=== PATIENT | female | born 1960 | race Caucasian/White ===

== ENCOUNTER 2021-08-31 10:21 | Emergency (ER) | payer BC, SELFPAY ==
[2021-08-31] VITALS (7 sets, daily range): BP systolic 119–142; BP diastolic 84–109; PULSE 74–129; RESP 16–18; TEMP 36.1; O2SAT 96–99
--- NOTE | 2021-08-31 11:24 | ED.NURSE ---
1117--started #20 jelco as a saline lock in the RAC and able to draw the labs. running a ED POC Trop with results pending. EKG done. patient remains pain free. placed on bus driver/monitor, pulse ox, and bp monitor.
--- NOTE | 2021-08-31 11:38 | CRLHL7_ITS ---
For Patients: As a result of the Cures Act, medical imaging exams and procedure reports are released immediately into your electronic medical record. You may view this report before your referring provider. If you have questions, please contact your health care provider. INDICATION: Abnormal cardiac rhythm COMPARISON: None TECHNIQUE: Single-view study FINDINGS: TUBES AND LINES: None. HEART AND MEDIASTINUM: The heart size is normal. The mediastinal contour appears normal for patient age. LUNGS AND PLEURAL SPACES: The lungs appear normal.The pleural spaces are unremarkable. OSSEOUS STRUCTURES: Age-appropriate appearance. No acute focal finding.Marginal visualization of a left shoulder arthroplasty. IMPRESSION: No evidence of active pulmonary disease. Dictated by Jayant Justin MD @ 08/31/2021 12:27:48 PM (Electronically Signed)
[2021-08-31 12:07] LABS: Basophils Absolute Auto 0.01 K/uL (0.00-0.30); Basophils Percent Auto 0.1 % (0.0-3.0); Eosinophils Absolute Auto 0.02 K/uL (0.00-0.50); Eosinophils Percent Auto 0.3 % (0.0-7.0); Hematocrit 45.4 % (33.0-51.0); Immature Granulocytes Abs Auto 0.05 K/uL (0.00-0.30); Lymphocytes Percent Auto 14.9 % (20-44); Mean Corpuscular HGB Conc 33 gm/dL (32-36); Mean Corpuscular Hemoglobin 31 pg (26-34); Mean Corpuscular Volume 94 fL (80-100); Monocytes Percent Auto 6.7 % (0.0-11.0); Neutrophils Percent Auto 77.3 % (42.0-72.0); Platelet Count* 343 K/uL (140-440); RDW Coefficient of Variation % 12.8 % (11.5-15.5); Red Blood Count 4.82 m/uL (4.00-5.20); White Blood Count* 6.97 K/uL (4.50-11.00)
[2021-08-31] MEDS: ASPIRIN 81 MG TAB.CHEW 324 MG PO (12:07)
[2021-08-31] MEDS: dilTIAZem 5 MG/ML inj 10 MG IVP (12:08)
[2021-08-31] MEDS: 0.9 % SODIUM CHLORIDE 1000 ml 1,000 ML IV (12:09)
[2021-08-31 12:10] LABS: Slide Review Reflex No
[2021-08-31 12:19] LABS: Albumin* 4.4 g/dL (3.3-5.0); Chloride* 104 mmol/L (96-114); Sodium* 137 mmol/L (135-149)
[2021-08-31 12:20] LABS: Potassium* 4.3 mmol/L (3.6-5.1)
[2021-08-31 12:22] LABS: Aspartate Amino Transferase* 25 U/L (12-35); Bilirubin Total* 0.4 mg/dL (0.1-1.5); Carbon Dioxide* 24 mmol/L (20-32); Creatinine* 0.7 mg/dL (0.5-1.5); Est. Creatinine Clearance* 51.81; Estimated Glomerular Filt Rate 97 ml/min
[2021-08-31 12:23] LABS: Alanine Aminotransferase* 17 U/L (4-35); Alkaline Phosphatase* 112 U/L (40-150); Blood Urea Nitrogen* 12 mg/dL (7-30); Glucose* 114 mg/dL (60-115); Total Protein* 8.1 g/dL (6.0-8.3)
[2021-08-31 12:31] LABS: NT Pro B Type NatriureticPept* 664 PG/mL (0-125)
[2021-08-31 12:41] LABS: Troponin I* < 0.01 ng/mL (0.01-0.04)
--- NOTE | 2021-08-31 12:47 | ED.ARRPALP ---
HPI - Arrhythmia/Palpitations General Time Seen by Provider: 11:00 Date Seen: 08/31/21 Chief Complaint: Arrhythmia/Palpitations Stated Complaint: Issues with afib, raised heartrate Time Seen by Provider: 08/31/21 11:17 Source: patient, family, RN notes reviewed and old records reviewed Mode of arrival: ambulatory Limitations: no limitations History of Present Illness HPI narrative: Awa is a very pleasant 61-year-old female with a history of atrial fibrillation status post ablation 5 years ago who comes to the emergency room with complaints of irregular heartbeat intermittently over the past month. Patient notes the onset of occasional episodes of irregular heartbeat a month ago. At times this would last for hours. Today's irregular heart rate which is elevated and bothersome for her has been lasting since yesterday. Patient is not currently on aspirin or any blood thinners. She denies chest pain or shortness of breath. She is tired because she states she cannot sleep when she has this going on. She has not noticed any lower extremity edema, shortness of breath, cough cold runny nose. She has not had any problems with irregular heartbeat since her ablation 5 years ago. In June of this year patient fell and sustained a concussion. She did not lose consciousness and did not require a CT. She had ongoing vertigo which was treated with physical therapy. Has not had any problems since that time. She has had complete resolution of all her symptoms. Patient notes moderate intake of caffeine. She has not any stimulant medication. MD complaint: rapid heart beat Related Data Home Medications Medication Instructions Recorded Confirmed cetirizine 08/31/21 fluticasone propionate 50 INTRANASAL 08/31/21 mcg/actuation nasal spray,suspension ben-kub-qsdcz-cholin-bioflavon 08/31/21 replanex 08/31/21 sertraline 50 mg tablet mg 08/31/21 Previous Rx's Medication Instructions Recorded apixaban 5 mg tablet (Eliquis) 5 mg PO BID #60 tab 08/31/21 diltiazem HCl 120 mg 120 mg PO DAILY #30 cap 08/31/21 capsule,extended release 24 hr (Cardizem CD) Allergies Allergy/AdvReac Type Severity Reaction Status Date / Time omeprazole [From Prilosec] Allergy Mild jitters Verified 08/31/21 10:58 Review of Systems Status of ROS: Reports: 10 or more systems reviewed and unremarkable except as noted in History and below Const: Reports: fatigue (From lack of sleep); Denies: fever or chills Eyes: Denies: change in vision or blurry vision ENMT: Denies: throat pain, neck pain or difficulty swallowing Cardio: Denies: shortness of breath with exertion Resp: Denies: shortness of breath or wheezing GI: Denies: abdominal pain, nausea, vomiting, diarrhea or difficulty swallowing : Denies: painful urination or urinary frequency Musculo: Denies: back pain or neck pain Integ/Breast: Denies: rash Neuro: Denies: headache, numbness in extremities or weakness in extremities Psych: Denies: anxiety Endo: Reports: fatigue (From lack of sleep) Allergy/Immuno: Denies: wheezing PFSH PFSH Surgical History (Updated 08/31/21 @ 14:18 by Rosmery Lima RN) S/P ablation of atrial fibrillation Social History Smoking Status: Former smoker Do you use any of these nicotine containing products: None How often do you have a drink containing alcohol: 2-3 times a week How often do you have six or more drinks on one occasion: Weekly AUDIT-C Alcohol total score: 6 Non-prescribed substance use: denies use service: No Exam Const: Vital Signs, click to edit/add: Vital Signs - 24 hr 08/31/21 10:52 08/31/21 11:10 08/31/21 11:30 Temperature 97.0 F L Pulse Rate [Right Pulse Oximeter] 75 129 H 103 H Respiratory Rate 18 18 18 Blood Pressure [Ri ght Upper Arm] 123/84 136/89 132/109 H Pulse Oximetry 99 99 96 08/31/21 12:00 08/31/21 13:00 08/31/21 13:30 Temperature Pulse Rate [Right Pulse Oximeter] 108 H 77 77 Respiratory Rate 16 16 16 Blood Pressure [Ri ght Upper Arm] 126/97 H 136/87 142/87 H Pulse Oximetry 98 96 97 08/31/21 14:00 Temperature Pulse Rate [Right Pulse Oximeter] 74 Respiratory Rate 16 Blood Pressure [Ri ght Upper Arm] 119/93 H Pulse Oximetry 96 Documenting provider has reviewed patient's vital signs: yes Common normals: no apparent distress, oriented x3 and healthy appearing General appearance: cooperative, comfortable and well kempt HENMT: Common normals: normocephalic Head and scalp: normal to inspection and normocephalic Face and sinus: normal facial exam Eye: Common normals: PERRL General eye: normal appearance of both eyes Pupil: PERRL Neck & C-Spine: Common normals: supple and no JVD; negative for full ROM Resp: Common normals: normal respiratory effort and clear to auscultation bilaterally Effort & inspection: able to speak in complete sentences and symmetric chest movement Auscultation: clear to auscultation bilaterally Cardio: Common normals: no JVD Rate: tachycardic Rhythm: abnormal rhythm irregularly irregular GI: Common normals: Normal to inspection, nondistended, normoactive bowel sounds present, soft to palpation and non-tender Palpation: soft Extremity: Common normals: normal to inspection and no pedal edema Neuro: Common normals: oriented x3 Psych: Common normals: mental status grossly normal Appearance: well kempt Skin: Common normals: no rashes or lesions noted General skin exam: no rashes or lesions noted Course Course Hospital Course: Patient is presenting in atrial fibrillation intermittent for 1 month. She is not currently on any blood thinners. We will check for underlying acute coronary event but I think this is turned into a subacute situation. Patient will be given aspirin 324 mg p.o.. Will be use Cardizem 10 mg IV to slow heart rate down and then give p.o. Cardizem for continued rate control. I suspect that patient will continue in her atrial fibrillation. Will start her on Eliquis. Will check cardiac enzymes and EKGs x2. Will also check a love other electrolytes including magnesium, CBC, liver function tests. Reevaluation(s) Reevaluation #1: Patient noted to be feeling better now with a heart rate in her 80s. Currently awaiting remainder of labs but thus far laboratory values within normal limits. Vital Signs Vital signs: Initial Vital Signs Temperature 97.0 F L 08/31/21 10:52 Temperature Source Temporal Artery Scan 08/31/21 10:52 Pulse Rate 75 08/31/21 10:52 Pulse Rhythm 08/31/21 10:52 Respiratory Rate 18 08/31/21 10:52 Blood Pressure 123/84 08/31/21 10:52 Blood Pressure Mean 97 08/31/21 10:52 Blood Pressure Position Sitting 08/31/21 10:52 Pulse Oximetry 99 08/31/21 10:52 Oxygen Delivery Method 08/31/21 10:52 Vital Signs Temperature 97.0 F L 08/31/21 10:52 Pulse Rate 75 08/31/21 10:52 Respiratory Rate 18 08/31/21 10:52 Blood Pressure 123/84 08/31/21 10:52 Pulse Oximetry 99 08/31/21 10:52 Temperature 97.0 F L 08/31/21 10:52 Pulse Rate 74 08/31/21 14:00 Respiratory Rate 16 08/31/21 14:00 Blood Pressure 119/93 H 08/31/21 14:00 Pulse Oximetry 96 08/31/21 14:00 MDM - Arrhythmia/Palpitations MDM Narrative Medical decision making narrative: 1. Atrial fibrillation with RVR-patient has history of AFib with ablation 5 years ago. She has now had intermittent irregular heartbeat for the past month. She has not been on any blood thinners. Patient was given aspirin upon her arrival as well as IV fluids, Cardizem 10 mg IV. She has had 2- troponins and her EKGs are reassuring. Heart rate now in the 70s to 80s. She was given oral Cardizem CD 120 mg. She will be discharged home. She will need to follow up with her primary MD if her heart rate is above 100 for increased dose of Cardizem. I would ask that she also started on Eliquis 5 mg p.o. b.i.d. I did attempt to put in Xarelto but was notified by computer that this was not on her formulary list. She had taken Xarelto successfully for 5 years ago. No evidence [facility] today. Follow-up with primary MD and machine stacker. She may be a candidate for cardioversion versus ablation. Return to the emergency room for worsening symptoms. 2. Disposition-patient is discharged home. She is to return as needed for worsening symptoms. Medical Records Attestation: I reviewed the patient's medical records. Lab Data Attestation: I reviewed the patient's lab results. Labs: Lab Results 08/31/21 08/31/21 08/31/21 Range/Units 11:17 11:17 11:17 WBC 6.97 (4.50-11.00) K/uL RBC 4.82 (4.00-5.20) m/uL Hgb 15.0 (12.0-16.0) gm/dL Hct 45.4 (33.0-51.0) % MCV 94 (80-100) fL MCH 31 (26-34) pg MCHC 33 (32-36) gm/dL RDW Coeff of Rosa 12.8 (11.5-15.5) % Plt Count 343 (140-440) K/uL Neut % (Auto) 77.3 H (42.0-72.0) % Lymph % (Auto) 14.9 L (20-44) % Mcintosh % (Auto) 6.7 (0.0-11.0) % Eos % (Auto) 0.3 (0.0-7.0) % Baso % (Auto) 0.1 (0.0-3.0) % Neut # (Auto) 5.40 (1.7-7.0) K/uL Lymph # (Auto) 1.00 (0.90-2.90) K/uL Mcintosh # (Auto) 0.50 (0.00-0.90) K/UL Eos # (Auto) 0.02 (0.00-0.50) K/uL Baso # (Auto) 0.01 (0.00-0.30) K/uL Abs Immat Gran (auto) 0.05 (0.00-0.30) K/uL Sodium 137 (135-149) mmol/L Potassium 4.3 (3.6-5.1) mmol/L Chloride 104 (96-114) mmol/L Carbon Dioxide 24 (20-32) mmol/L BUN 12 (7-30) mg/dL Creatinine 0.7 (0.5-1.5) mg/dL Estimated Creat Clear 51.81 Estimated GFR 97 ml/min Glucose 114 (60-115) mg/dL Calcium 9.0 (8.4-10.6) mg/dL Magnesium 2.0 (1.5-2.6) mg/dL Total Bilirubin 0.4 (0.1-1.5) mg/dL AST 25 (12-35) U/L ALT 17 (4-35) U/L Alkaline Phosphatase 112 (40-150) U/L Troponin I < 0.01 L (0.01-0.04) ng/mL NT-Pro-B Natriuret Pep 664 H (0-125) PG/mL Total Protein 8.1 (6.0-8.3) g/dL Albumin 4.4 (3.3-5.0) g/dL POC Troponin I 0.00 L (0.01-0.04) ng/ml 08/31/21 Range/Units 13:19 WBC (4.50-11.00) K/uL RBC (4.00-5.20) m/uL Hgb (12.0-16.0) gm/dL Hct (33.0-51.0) % MCV (80-100) fL MCH (26-34) pg MCHC (32-36) gm/dL RDW Coeff of Rosa (11.5-15.5) % Plt Count (140-440) K/uL Neut % (Auto) (42.0-72.0) % Lymph % (Auto) (20-44) % Mcintosh % (Auto) (0.0-11.0) % Eos % (Auto) (0.0-7.0) % Baso % (Auto) (0.0-3.0) % Neut # (Auto) (1.7-7.0) K/uL Lymph # (Auto) (0.90-2.90) K/uL Mcintosh # (Auto) (0.00-0.90) K/UL Eos # (Auto) (0.00-0.50) K/uL Baso # (Auto) (0.00-0.30) K/uL Abs Immat Gran (auto) (0.00-0.30) K/uL Sodium (135-149) mmol/L Potassium (3.6-5.1) mmol/L Chloride (96-114) mmol/L Carbon Dioxide (20-32) mmol/L BUN (7-30) mg/dL Creatinine (0.5-1.5) mg/dL Estimated Creat Clear Estimated GFR ml/min Glucose (60-115) mg/dL Calcium (8.4-10.6) mg/dL Magnesium (1.5-2.6) mg/dL Total Bilirubin (0.1-1.5) mg/dL AST (12-35) U/L ALT (4-35) U/L Alkaline Phosphatase (40-150) U/L Troponin I (0.01-0.04) ng/mL NT-Pro-B Natriuret Pep (0-125) PG/mL Total Protein (6.0-8.3) g/dL Albumin (3.3-5.0) g/dL POC Troponin I 0.00 L (0.01-0.04) ng/ml Imaging Data Chest: My impression: No acute findings Radiologist's impression: No acute findings ECG Data ECG interpretation date: 08/31/21 Interpretation: EKG 1. Shows atrial fibrillation with RVR at a rate of 112. Nonspecific ST T wave abnormality with very subtle depression in aVL and AVF. EKG 2. Shows atrial fibrillation at a rate of 85. No acute ST or T-wave changes. Discharge Plan Discharge Clinical Impression: Atrial fibrillation Patient Disposition: Home, Self-Care Condition: Improved Instructions: A-fib (Atrial Fibrillation) (ED), Blood Thinners (ED) Additional Instructions: Start Eliquis today for thinning of your blood. If pharmacy notes that this is not on your formulary, we could switch to Xarelto. . Continue Cardizem tomorrow for control of heart rate. Follow-up with your regular MD for recheck if you feel your heart rate is still too fast. Avoid situations where you could fall. Return to the emergency room for worsening symptoms. No work today or tomorrow. Contact your machine stacker to set you up for a visit. You may be a candidate for cardioversion if your heart rate does not go back into a regular rhythm in the next few weeks. Prescriptions: New diltiazem HCl [Cardizem CD] 120 mg capsule,extended release 24hr 120 mg PO DAILY Qty: 30 2RF Eliquis 5 mg tablet 5 mg PO BID Qty: 60 2RF No Action fluticasone propionate 50 mcg/actuation spray,suspension INTRANASAL 0RF Label Comments: INHALE 1 SPRAY TO BOTH NOSTRILS ONCE DAILY. sertraline 50 mg tablet 0RF Label Comments: TAKE 1 TABLET BY MOUTH EVERY DAY gei-iin-uampz-cholin-bioflavon 0RF replanex 0RF cetirizine [Zyrtec] 0RF Follow Up/Referrals: Merissa Lepe PA [Primary Care Provider] - Stand Alone Forms: Sitemasher Info Instructions
[2021-08-31] MEDS: dilTIAZem 120 MG CAP.ER.24H PO (13:05)
== END 2021-08-31 14:10 | disposition home or self-care (01) ==
PROVIDERS: Emergency Provider Family Medicine; PCP Physician Assistant
DX: I48.91 Unspecified atrial fibrillation (principal)
CPT/HCPCS: 36415; 71045; 80053; 81003; 83735; 83880; 84484; 85025; 93005; 99285; A9270; J7030

== ENCOUNTER 2024-02-17 07:23 | Outpatient (CLI) | payer MEDICARE, BC, SELFPAY ==
--- NOTE | 2024-02-17 09:23 | P.ANES_ITS ---
Anesthesia Charges Start Date/Time Anesthesia Start Date: 02/17/24 Anesthesia Start Time: 08:05 Stop Date/Time Anesthesia Stop Date: 02/17/24 Anesthesia Stop Time: 08:50 Coding CPT Codes CPT Codes: MILAGRO LWR INTST NDSC NOS - 44670 ([id number]) P2 - PATIENT W/MILD SYST DISEASE, QK - SALES REPRESENTATIVE UNIFORMS 2-4 CNCRNT ANES PROC, QX - FAMILY DENTIST SVC W/ MD MED DIRECTION
--- NOTE | 2024-02-17 09:23 | W.ANESCHARGE ---
Anesthesia Charges Start Date/Time Anesthesia Start Date: 02/17/24 Anesthesia Start Time: 08:05 Stop Date/Time Anesthesia Stop Date: 02/17/24 Anesthesia Stop Time: 08:50 Coding CPT Codes CPT Codes: MILAGRO LWR INTST NDSC NOS - 36128 ([id number]) P2 - PATIENT W/MILD SYST DISEASE, QK - DNA ANALYST 2-4 CNCRNT ANES PROC, QX - TEACHER OF THE HANDICAPPED SVC W/ MD MED DIRECTION
--- NOTE | 2024-02-17 10:45 | P.ANES_ITS ---
Anesthesia Charges Start Date/Time Anesthesia Start Date: 02/17/24 Anesthesia Start Time: 08:05 Stop Date/Time Anesthesia Stop Date: 02/17/24 Anesthesia Stop Time: 08:50 Coding CPT Codes CPT Codes: MILAGRO LWR INTST NDSC NOS - 06876 ([id number]) QK - CAUL FAT PULLER 2-4 CNCRNT MILAGRO PROC, QX - ANIMAL MAINTENANCE SUPERVISOR SVC W/ MD MED DIRECTION, P2 - PATIENT W/MILD SYST DISEASE
--- NOTE | 2024-02-17 10:45 | W.ANESCHARGE ---
Anesthesia Charges Start Date/Time Anesthesia Start Date: 02/17/24 Anesthesia Start Time: 08:05 Stop Date/Time Anesthesia Stop Date: 02/17/24 Anesthesia Stop Time: 08:50 Coding CPT Codes CPT Codes: MILAGRO LWR INTST NDSC NOS - 23289 ([id number]) QK - ENTRY LEVEL CHEMIST 2-4 CNCRNT MILAGRO PROC, QX - RN CLINICAL COORDINATOR SVC W/ MD MED DIRECTION, P2 - PATIENT W/MILD SYST DISEASE
== END 2024-02-17 07:24 | disposition home or self-care (01) ==
LOC: OP CLINIC 07:27
PROVIDERS: PCP Student in an Organized Health Care Education/Training Program; Visit Provider Internal Medicine Gastroenterology
DX: Z12.11 Encounter for screening for malignant neoplasm of colon (principal); D12.2 Benign neoplasm of ascending colon; D12.8 Benign neoplasm of rectum; K57.30 Diverticulosis of large intestine without perforation or abscess without bleeding; Z86.0101 Personal history of adenomatous and serrated colon polyps
CPT/HCPCS: 00811; 45380; 45385; J2704